=== PATIENT | female | born 1975 | race Caucasian/White ===

== ENCOUNTER → 2019-10-13 14:05 | Outpatient (BNVA) | payer OTHER, SELFPAY | PROVIDERS: Family Provider Family Medicine; PCP Family Medicine; Visit Provider Obstetrics & Gynecology | DX: N39.46 Mixed incontinence (principal) | CPT/HCPCS: 80053; 87077; 87086; 87186 ==

== ENCOUNTER 2020-07-03 14:14 | Outpatient (CLI) | payer OTHER, SELFPAY ==
--- NOTE | 2020-07-03 14:18 | MM_ITS ---
WS: [id number] BILATERAL DIGITAL SCREENING MAMMOGRAPHY WITH CAD CLINICAL INFORMATION: SCREENING HISTORY: Screening mammogram. No current complaints. COMPARISON: TECHNIQUE: Bilateral CC and MLO views. FINDINGS: The breasts are composed of heterogeneous fibroglandular density tissue, which can limit the detectio n of small underlying mass lesions. No suspicious mass, asymmetry, calcifications, or architectural d istortion. No evidence of malignancy. A few punctate calcifications. MM/[id number] IMPRESSION: BI-RADS: 2-Benign FOLLOW UP: 1 Year Follow-up Recommend return to annual screening mammography.
== END 2020-07-03 14:15 | disposition home or self-care (01) ==
LOC: RADSHAW 14:17
PROVIDERS: PCP Family Medicine; Visit Provider Family Medicine
DX: Z12.31 Encounter for screening mammogram for malignant neoplasm of breast (principal)
CPT/HCPCS: 77067

== ENCOUNTER 2021-02-28 08:53 | Outpatient (CLI) | payer SELFPAY ==
[2021-02-28 09:19] VITALS: BP 133/75; PULSE 70; RESP 16; TEMP 37; O2SAT 96; BMI 31.1
[2021-02-28 09:54] VITALS: BP 123/76; PULSE 76; RESP 18; TEMP 36.8; O2SAT 97
[2021-02-28 10:37] VITALS: BP 129/87; PULSE 86; RESP 16; TEMP 36.7; O2SAT 96
== END 2021-02-28 08:54 | disposition home or self-care (01) ==
LOC: OPS 08:55
PROVIDERS: PCP Family Medicine; Visit Provider Nurse Practitioner
DX: U07.1 COVID-19 (principal)
CPT/HCPCS: 96365